=== PATIENT | female | born 1970 | race Caucasian/White ===

== ENCOUNTER → 2016-11-07 20:22 | Outpatient (CLI) | payer OTHER ==
[2016-11-09 06:15] LABS: PROGESTERONE 0.5 ng/mL (())
[2016-11-10 03:09] LABS: TESTOSTERONE - FREE 0.9 pg/mL (0.0-4.2); TESTOSTERONE - SERUM 17 ng/dL (8-48)
[2016-11-10 19:08] LABS: ESTROGENS - TOTAL 79 pg/mL (())
== END | disposition home or self-care (01) ==
LOC: D.LABREF 20:22
PROVIDERS: Family Medicine
DX: N95.9 Unspecified menopausal and perimenopausal disorder (principal)

== ENCOUNTER → 2016-12-17 18:33 | Outpatient (CLI) | payer OTHER | END | disposition home or self-care (01) | LOC: D.MAMMO 13:00 | DX: Z12.31 Encounter for screening mammogram for malignant neoplasm of breast (principal) ==

== ENCOUNTER → 2017-11-14 14:34 | Outpatient (CLI) | payer BC | END | disposition home or self-care (01) | LOC: D.CT 14:34 | DX: R06.00 Dyspnea, unspecified (principal) ==

== ENCOUNTER 2019-12-02 10:00 | Outpatient (CLI) | payer BC | END 2019-12-02 11:00 | disposition home or self-care (01) | LOC: D.MAMMO 10:00 | PROVIDERS: ATTEND Family Medicine | DX: Z12.31 Encounter for screening mammogram for malignant neoplasm of breast (principal) ==